=== PATIENT | male | born 1955 | race Two or more races ===

== ENCOUNTER 2023-03-08 11:33 | Emergency (ER) | payer BC, OTHER ==
[~2023-03-08] VITALS: Ht 182.9 cm; Wt 117.9 kg
[2023-03-08] MEDS ORDERED: TRULICITY3 MG/0.5 M SQ (12:29)
[2023-03-08] MEDS ORDERED: MOMETASONE FURO17 GM NS (12:30)
[2023-03-08] MEDS ORDERED: AMOX-CLAV 875-1 EAC1 PO (12:30)
[2023-03-08] MEDS ORDERED: LEVOTHYROXINE100 MC1 PO (12:30)
[2023-03-08] MEDS ORDERED: ATORVASTATIN CA20 MG PO (12:31)
[2023-03-08] MEDS ORDERED: PROPRANOLOL HCL80 M1 PO (12:31)
[2023-03-08] MEDS ORDERED: ST. JOSEPH ASPI81 M2 PO (12:31)
[2023-03-08] MEDS ORDERED: METFORMIN HCL500 M4 PO (12:31)
== END 2023-03-08 15:47 | disposition home or self-care (01) ==
LOC: ER 11:33
DX: J45.901 Unspecified asthma with (acute) exacerbation (principal); Z20.822 Contact with and (suspected) exposure to COVID-19; E11.9 Type 2 diabetes mellitus without complications; I10 Essential (primary) hypertension